=== PATIENT | male | born 1960 | race Caucasian/White ===

== ENCOUNTER 2022-01-25 11:13 | Inpatient (IN) | payer OTHER ==
[~2022-01-25] VITALS: Ht 185.4 cm; Wt 63.1 kg
[2022-01-25] MEDS ORDERED: IV NORMAL SALINE 1000 ML BAG IV ONE (11:30)
[2022-01-25 11:56] LABS: *BILIRUBIN,URIN NEGATIVE (NEGATIVE); *BLOOD, URINE NEGATIVE (NEGATIVE); *CLARITY,URINE SLIGHTLY CLOUDY (CLEAR); *COLOR,URINE YELLOW (YELLOW); *KETONES,URINE NEGATIVE (NEGATIVE); *UROBILINOGEN,URINE 0.2 E.U./dl (NORMAL); LEUKOCYTE ESTERASE ,URINE NEGATIVE (NEGATIVE); NITRITE, URINE POSITIVE (NEGATIVE); PH,URINE 7.5 (5.0-8.0); UGLUCOSE NEGATIVE (NEGATIVE)
[2022-01-25 11:57] LABS: HEMATOCRIT 41.6 % (36.7-47.1); MEAN CORPUSCULAR HEMOGLOBIN 30.9 uug (23.8-33.4); MEAN CORPUSCULAR VOLUME 91.2 fL (73.0-96.2); PLATELET COUNT (AUTO) 365 K/uL (152-348)
[2022-01-25 12:08] LABS: CREATININE 0.7 mg/dL (0.6-1.3); POTASSIUM 3.6 mmol/L (3.5-5.1)
[2022-01-25 12:14] LABS: BILIRUBIN,DIRECT 0.2 mg/dL (0.0-0.2); BILIRUBIN,TOTAL 0.4 mg/dL (0.2-1.0); TOTAL PROTEIN, SERUM 7.7 g/dL (6.4-8.2)
[2022-01-25] MEDS ORDERED: MORPHINE SULFATE 2 MG/1 ML DISP.SYRIN ONE (12:14)
[2022-01-25] MEDS ORDERED: MORPHINE SULFATE 2 MG/1 ML DISP.SYRIN IV ONE (12:15)
[2022-01-25] MEDS ORDERED: SWABABLE VALVE TRANSFER SET EA MC ONE (12:48)
[2022-01-25] MEDS ORDERED: IOHEXOL 300MG/ML 100 ML INFUS..BTL ONE (12:48)
[2022-01-25] MEDS ORDERED: IV NORMAL SALINE 250 ML IV ONE (12:49)
[2022-01-25] MEDS ORDERED: ASPIRIN 325 MG TABLET PO ONE (16:30)
[2022-01-25] MEDS ORDERED: KETOROLAC TROMETHAMINE 15 MG INJ ONE (16:51)
[2022-01-25] MEDS ORDERED: ASPIRIN 325 MG TABLET ONE (16:55)
[2022-01-25] MEDS ORDERED: KETOROLAC TROMETHAMINE 15 MG INJ IVP ONE (17:00)
--- NOTE | 2022-01-25 17:18 | NUR ---
Received call from [employer] Machine Operator, pt has a room in 304, under the care of Mria DIXON.
--- NOTE | 2022-01-25 17:44 | NUR ---
Will be under the medical care of Dr. Herman. Assigned to Tele unit, on room 304.
--- NOTE | 2022-01-25 18:08 | NUR ---
Pt is requesting not to forget his "very expensive guitar" before rolling upstairs.
--- NOTE | 2022-01-25 18:16 | NUR ---
Gave report to Mira DIXON.
[2022-01-25] MEDS ORDERED: DICYCLOMINE HCL 20 MG TABLET ONE (18:55)
[2022-01-25] MEDS ORDERED: DICYCLOMINE HCL 20 MG TABLET PO PRN (19:00)
--- NOTE | 2022-01-25 19:22 | NUR ---
Transported patient to Tele, room 304. Pt stable and V/S are WNL.
[2022-01-25] MEDS ORDERED: ACETAMINOPHEN 325 MG TABLET PO PRN (19:30)
[2022-01-25] MEDS ORDERED: ONDANSETRON 4 MG/2 ML VIAL IV PRN (19:30)
[2022-01-25] MEDS ORDERED: MAGNESIUM HYDROXIDE 30 ML LIQUID UDC PO PRN (19:30)
[2022-01-25] MEDS ORDERED: BISACODYL 10 MG SUPP.RECT RC PRN (19:30)
[2022-01-25] MEDS ORDERED: REMEDY ESSENTIAL ZINC PASTE 113 GM TP PRN (19:30)
--- NOTE | 2022-01-25 19:30 | NUR ---
Admitted patient in Telemetry TD under the care of Jd Herman, alert oriented no sob no chest pain, complain of abdominal pain, will medicate as ordered. Patient refused to take off street clothing, refused to answer questions regarding bhumika history, easily get irritated, refused body check. Patient sinus rhythm on tele, cont to monitor.
[2022-01-25] MEDS ORDERED: BISACODYL 10 MG SUPP.RECT RC ONE (19:45)
[2022-01-25 20:00] VITALS: BP 171/93
[2022-01-25] MEDS ORDERED: METOPROLOL TARTRATE 25 MG TABLET PO SCH (21:00)
[2022-01-25] MEDS ORDERED: ENOXAPARIN SODIUM 40 MG/0.4 ML DISP.SYRIN SQ SCH (21:00)
[2022-01-25] MEDS ORDERED: MORPHINE SULFATE 2 MG/1 ML DISP.SYRIN IM PRN (21:15)
[2022-01-25] MEDS: MORPHINE SULFATE 2 MG/1 ML DISP.SYRIN IV PRN (21:58)
--- NOTE | 2022-01-25 22:00 | NUR ---
Patient refused dulcolax suppositories, stated he had BM x3 today.
[2022-01-26] VITALS: BP 172/84
[2022-01-26 02:38] LABS: BACTERIA,URINE MANY /HPF (NONE SEEN); RBC,URINE 0-3 /HPF (0-3); WBC,URINE 0-3 /HPF (0-3)
[2022-01-26 02:39] LABS: SQUAMOUS EPITHELIAL CELL,UR FEW /HPF (NONE SEEN)
[2022-01-26 04:00] VITALS: BP 116/85
[2022-01-26 06:31] LABS: HEMATOCRIT 40.4 % (36.7-47.1); MEAN CORPUSCULAR HEMOGLOBIN 31.3 uug (23.8-33.4); MEAN CORPUSCULAR VOLUME 89.8 fL (73.0-96.2); PLATELET COUNT (AUTO) 399 K/uL (152-348)
[2022-01-26 07:03] LABS: THYROID STIMULATING HORMONE 1.104 mIU/mL (0.358-3.740)
[2022-01-26 07:04] LABS: BILIRUBIN,TOTAL 0.5 mg/dL (0.2-1.0); CREATININE 0.7 mg/dL (0.6-1.3); MAGNESIUM 1.7 mg/dL (1.8-2.4); PHOSPHOROUS 3.2 mg/dL (2.5-4.9); TOTAL PROTEIN, SERUM 7.1 g/dL (6.4-8.2)
[2022-01-26] MEDS ORDERED: POTASSIUM CHLORIDE 20 MEQ TAB.PRT.SR PO ONE (08:15)
[2022-01-26] MEDS ORDERED: POTASSIUM CHLORIDE 20 MEQ POWDER PACKET GT ONE (08:15)
[2022-01-26] MEDS: MORPHINE SULFATE 2 MG/1 ML DISP.SYRIN IV PRN ×2 (08:21→11:23)
[2022-01-26 08:31] VITALS: BP 122/77
[2022-01-26] MEDS: MAGNESIUM SULFATE/D5W 100 ML IV SCH ×2 (08:56→09:15)
[2022-01-26] MEDS: POTASSIUM CHLORIDE 50 ML IV SCH ×2 (08:56→09:15)
[2022-01-26] MEDS ORDERED: ASPIRIN EC 81 MG TABLET.DR PO SCH (09:00)
[2022-01-26 11:34] LABS: *AMPHETAMINE, URINE NEGATIVE (NEGATIVE); *CANNABINOID, URINE POSITIVE (NEGATIVE); *COCCAINE, URINE NEGATIVE (NEGATIVE); *OPIATE, URINE POSITIVE (NEGATIVE); *PHENCYCLIDINE SCREEN,URINE NEGATIVE (NEGATIVE)
[2022-01-26 11:51] VITALS: BP 129/77
--- NOTE | 2022-01-26 11:59 | NUR ---
Social Work consult was requested on [facility] for homeless and substance abuse resources. Patient is a 61-year-old male admitted to the hospital for abdominal pain. Patient presents with anxious mood and congruent affect. Patient states his primary contact is his mother, Shawna ([phone]) and she lives in [place]. Patient states he is homeless, and SW provided the patient with homeless resources for [facility] [address] [place] [address] ([phone]) and [facility] [address] [place] [address] ([phone]). SW gave resources for [facility] [address] [place] [id number]. Patient signed the homeless waiver, and a copy was placed in the patients chart. SW provided the patient with a TAP card. Patient states he has a history of substance abuse, but only smokes weed now. The toxicology report was positive for cannabinoids and opiates. LES provided the patient with medication assisted treatment from [facility] [address] [facility] [address] ([phone]), [facility] [address] [facility] [address] ([phone]), and [facility] [address] [address] [facility], [place], [place] [phone]. Patient appears unmotivated for treatment. Patient denies a history of psychiatric diagnosis and states he does not have a therapist or psychiatrist. Patient denies suicidal or homicidal ideation. LES provided the patient with mental health resources for [facility] [address] [address] [place] [address] ([phone]). LES placed the resources in the patients chart. Patient states he will follow up with making his own arrangements for a living arrangement using the resources provided.
[2022-01-26] MEDS ORDERED: MAGNESIUM OXIDE 400 MG TABLET PO ONE (12:00)
--- NOTE | 2022-01-26 12:15 | NUR ---
Patient on and off having some outburst behavior, screaming on the phone he tells this typewriter operator automatic that he was talking to his brother who does not care about anyone but himself. Patient also has the same behavior when he requests for PRN pain medication. Patient has orders for magnesium and Potassium IV but c/o burning through the peripheral line while magnesium was infusing. Pharmacy made aware magnesium 400mg was given PO.
--- NOTE | 2022-01-26 14:22 | NUR ---
Received order to discharge patient to home. IV lines removed, personal belongings reviewed and signed by patient. Patient got anxious with the outburst behavior picked up his belongings and left unit without his discharge paperwork. Patient ambulates off unit in no apparent distress.
[2022-01-26] MEDS ORDERED: BISACODYL 10 MG SUPP.RECT RC PRN (21:00)
== END 2022-01-26 14:20 | disposition home or self-care (01) | DRG 254 ==
LOC: ER 11:13 → TELE3 19:02 → TELE-TD3 20:03
PROVIDERS: ADMIT Nurse Practitioner Acute Care; ATTEND Nurse Practitioner Acute Care
DX: K59.00 Constipation, unspecified (principal); E43 Unspecified severe protein-calorie malnutrition; F29 Unspecified psychosis not due to a substance or known physiological condition; Z20.822 Contact with and (suspected) exposure to COVID-19; Z76.5 Malingerer [conscious simulation]; R77.8 Other specified abnormalities of plasma proteins; R94.31 Abnormal electrocardiogram [ECG] [EKG]; F60.9 Personality disorder, unspecified; Z68.1 Body mass index [BMI] 19.9 or less, adult
CPT/HCPCS: 36415; 83605; 83690; 83735; 84100; 84443; 84484; 85025; 93005; A4663; G0378; J1650; J1885; J2270; J2405; J3475; J3480; J7040; Q9967